=== PATIENT | female | born 1960 | race Caucasian/White ===

== ENCOUNTER 2017-03-23 18:30 | Emergency (ER) | payer OTHER ==
[2017-03-23 18:40] VITALS: BP 112/70; PULSE 74; TEMP 98; BMI 22.0
--- NOTE | 2017-03-23 18:48 | PDOC ---
[id number] PT STATES SHE HAS 2 TICKS IN RIGHT FOOT Time Seen by Provider: 03/23/17 18:47 History Source: Patient Exam Limitations: No Limitations - History of Present Illness Initial Comments: 03/23/17 23:01 This is a 57 her old female who comes in complaining of a tick on her foot. Patient denies any other complaints there is no headache, rash, fever, chills or body aches. PAST MEDICAL HISTORY: no significant history PAST SURGICAL HISTORY: no significant history FAMILY HISTORY: no pertinant history SOCIAL HISTORY: Pt lives with family and is employed. MEDICATIONS: reviewed ALLERGIES: As per nursing notes Review of Systems General: No fevers or chills, no weakness, no weight loss HEENT: No change in vision. No sore throat,. No ear pain CardioVascular: No chest pain or shortness of breath Respiratory:No cough, or wheezing. Gastrointestinal: no nausea, vomitting, diarrhea or constipation, No rectal bleeding Genitourinary: No dysuria, hematuria, or frequency Musculoskeletal: No joint or muscle pain or swelling Neurologic: No headache, vertigo, dizziness or loss of consciousness Psychiatric: nor depression Skin: No rashes or easy bruising, tick on foot Endocrine: no increased thirst or abnormal weight change Allergic: no skin or latex allergy All other systems reviewed and normal GENERAL: The patient is awake, alert, and fully oriented, in no acute distress. HEAD: Normal with no signs of trauma. EYES: Pupils equal, round and reactive to light, extraocular movements intact, sclera anicteric, conjunctiva clear. EXTREMITIES: Normal range of motion, no edema. On examination of the right foot there is not a tick on the foot but a small blood blister. NEUROLOGICAL: Normal speech, normal gait. PSYCH: Normal mood, normal affect. SKIN: Warm, Dry, normal turgor, no rashes or lesions noted. Assessment and plan: This is a 57-year-old female came in for evaluation of a tick bite. However it was noted that is that of a tick there was a small blood blister on her foot so patient was reassured and discharged home and follow-up with her primary care doctor Past History - Past Medical History Allergies/Adverse Reactions: Allergies Allergy/AdvReac Type Severity Reaction Status Date / Time No Known Allergies Allergy Verified 03/23/17 18:35 Home Medications: Ambulatory Orders NK [No Known Home Medication] 03/23/17 - Surgical History Appendectomy: Yes (AGE 7) - Psycho/Social/Smoking Cessation Hx Anxiety: No Suicidal Ideation: No Smoking History: Never smoked Hx Alcohol Use: No Drug/Substance Use Hx: No Substance Use Type: None *Physical Exam - Vital Signs Last Vital Signs Temp Pulse Resp BP Pulse Ox 98.0 F 74 15 112/70 98 03/23/17 18:32 03/23/17 18:32 03/23/17 18:32 03/23/17 18:32 03/23/17 18:32 *DC/Admit/Observation/Transfer Diagnosis at time of Disposition: Blood blister - Discharge Dispostion Disposition: HOME Condition at time of disposition: Stable Admit: No - Patient Instructions Additional Instructions: Return to the emergency department immediately with ANY new, persistent or worsening symptoms. Continue any medications as previously prescribed by your physician. You should follow up with your primary doctor as soon as possible regarding today's emergency department visit. . Please make sure your doctor reviews the results of your emergency evaluation. Thank you for coming to the Emergency Department today for your care. It was a pleasure to see you today. Please note that your evaluation is INCOMPLETE until you follow-up with your doctor.
== END 2017-03-23 18:59 | disposition home or self-care (01) ==
LOC: FER 18:30
DX: S90.821A Blister (nonthermal), right foot, initial encounter (principal); W57.XXXA Bitten or stung by nonvenomous insect and other nonvenomous arthropods, initial encounter; Y93.9 Activity, unspecified
CPT/HCPCS: 99281-25